=== PATIENT | female | born 1955 | race Caucasian/White ===

== ENCOUNTER → 2022-08-17 08:55 | Outpatient (CLI) | payer MEDICARE, SELFPAY | PROVIDERS: PCP Family Medicine; Visit Provider Ophthalmology | DX: Z01.812 Encounter for preprocedural laboratory examination (principal); Z20.822 Contact with and (suspected) exposure to COVID-19 | CPT/HCPCS: C9803; U0003; U0005 ==

== ENCOUNTER 2022-08-20 08:59 | Day surgery (SDC) | payer MEDICARE, SELFPAY ==
[2022-08-15 10:45] VITALS: BMI 22.4
[2022-08-20] VITALS (7 sets, daily range): BP systolic 143–161; BP diastolic 58–75; PULSE 69–78; RESP 16–18; TEMP 36.3–36.4; O2SAT 96–100
== END 2022-08-20 11:35 | disposition home or self-care (01) ==
PROVIDERS: PCP Family Medicine; Visit Provider Ophthalmology
DX: H26.9 Unspecified cataract (principal)
CPT/HCPCS: 66984; V2632

== ENCOUNTER 2022-09-03 09:01 | Day surgery (SDC) | payer MEDICARE, SELFPAY ==
[2022-08-29 15:47] VITALS: BMI 22.4
[2022-09-03] VITALS (7 sets, daily range): BP systolic 146–158; BP diastolic 69–78; PULSE 64–82; RESP 16–18; TEMP 36.3–36.6; O2SAT 100
== END 2022-09-03 12:15 | disposition home or self-care (01) ==
LOC: OR 09:02
PROVIDERS: PCP Family Medicine; Visit Provider Ophthalmology
DX: H25.812 Combined forms of age-related cataract, left eye (principal); Z79.899 Other long term (current) drug therapy
CPT/HCPCS: 66984; V2632

== ENCOUNTER → 2023-02-24 09:21 | Outpatient (CLI) | payer MEDICARE, SELFPAY ==
--- NOTE | 2023-02-24 09:42 | XR_ITS ---
FINAL REPORT CLINICAL HISTORY: NUMBNESS PARASTHESIA OF SKIN FINDINGS: Four views of the cervical spine. There is no acute fracture. There are moderate degenerative changes with multilevel osteophytes. Mild anterolisthesis is seen of C3 on C4. There is mild retrolisthesis of C4 on C5. Mild bilateral neural foraminal narrowing is seen at C5-6 and C6-7. IMPRESSION: Moderate degenerative changes with mild bilateral neural foraminal narrowing at C5-6 and C6-7. No acute bony abnormality. Reviewed, Interpreted and Dictated by Jorgito Alejo III, MD Transcribed by Adeline Rock Authenticated and [facility]
== END ==
PROVIDERS: PCP Nurse Practitioner Family; Visit Provider Nurse Practitioner Family
DX: M54.2 Cervicalgia (principal); R20.0 Anesthesia of skin; R20.2 Paresthesia of skin
CPT/HCPCS: 72050

== ENCOUNTER → 2023-06-26 15:01 | Outpatient (CLI) | payer MEDICARE, SELFPAY ==
--- NOTE | 2023-06-26 15:09 | MR_ITS ---
FINAL REPORT CLINICAL HISTORY: CERVICALGIA. LEFT ARM NUMBNESS AND TINGLING. HEADACHE. NECK PAIN FINDINGS: Multiplanar MR imaging of the cervical spine was performed without contrast. On the sagittal T2-weighted images, disc degeneration is seen at multiple levels. There is no evidence of fracture. There is mild anterolisthesis of C3 on C4. Endplate changes are seen at multiple levels. The cervical spinal cord has an unremarkable appearance without evidence of mass, edema or syrinx. The cervicomedullary junction is normal. C2-3: Bilateral uncovertebral osteophytes are present. There is mild bilateral neural foraminal narrowing. C3-4: A disc bulge is present. There is mild left neural foraminal narrowing. C4-5: A disc osteophyte complex is present. There is moderate right and mild left neural foraminal narrowing. There is mild central canal stenosis with an AP diameter of the thecal sac of 8 mm. C5-6: A disc osteophyte complex is present. There is a left foraminal disc protrusion which extends beyond the osteophytes. There is mild right and severe left neural foraminal narrowing. There is probable left C6 nerve root impingement. There is mild central canal stenosis with an AP diameter of the thecal sac of 8 mm. C6-7: A disc osteophyte complex is present. There is mild right and moderate left neural foraminal narrowing. C7-T1: There is no significant canal stenosis or neural foraminal narrowing. IMPRESSION: Multilevel degenerative disc disease and spondylosis with multilevel bilateral neural foraminal narrowing. Left foraminal C5-6 disc protrusion with left C6 nerve root impingement, severe left neural foraminal narrowing and mild central canal stenosis. Mild central canal stenosis at C4-5. Authenticated and [facility]
== END ==
PROVIDERS: PCP Nurse Practitioner Family; Visit Provider Nurse Practitioner Family
DX: M54.2 Cervicalgia (principal); R20.0 Anesthesia of skin; R20.2 Paresthesia of skin
CPT/HCPCS: 72141; 76376